=== PATIENT | female | born 1980 | race Caucasian/White ===

== ENCOUNTER 2016-12-21 18:57 | Emergency (ER) | payer MEDICAID ==
[2016-12-21 20:45] LABS: BASOPHIL % 0.1 % (0-2); PLATELET COUNT 361 x10^3mcL (130-400)
[2016-12-21 20:47] LABS: RED CELL DISTRIBUTION WIDTH 15.5 % (11.5-14.5)
[2016-12-21 21:29] LABS: CALCIUM 9.3 mg/dL (8.5-10.1); CARBON DIOXIDE 21.8 mmol/L (21-32); CHLORIDE SERUM 101 mmol/L (98-107); CREATININE SERUM 1.1 mg/dL (0.6-1.0); GFR1 > 60 mL/min; GLUCOSE SERUM 90 mg/dL (74-106); POTASSIUM SERUM 4.5 mmol/L (3.5-5.1); SODIUM SERUM 134 mmol/L (136-145)
[2016-12-21 21:32] LABS: ALKALINE PHOSPHATASE 99 U/L (46-116); ALT/SGPT 21 U/L (14-59); AST/SGOT 24 U/L (15-37); BILIRUBIN TOTAL 0.3 mg/dL (0.20-1.00); LIPASE 106 IU/L (73-393)
[2016-12-21 21:33] LABS: TOTAL PROTEIN, SERUM 8.3 g/dL (6.4-8.2)
[2016-12-22 01:30] VITALS: BP 127/78
[2016-12-23] MEDS ORDERED: ZESTRIL20 MG PO (22:23)
[2016-12-23] MEDS ORDERED: CATAPRES0.1 MG PO (22:23)
[2016-12-23] MEDS ORDERED: PREDNISONE2.5 MG PO (22:23)
[2016-12-23] MEDS ORDERED: NEURONTIN600 MG PO (22:23)
[2016-12-23] MEDS ORDERED: TRAMADOL HCL50 MG PO (22:24)
[2016-12-23] MEDS ORDERED: PLAQUENIL200 MG PO (23:37)
== END 2016-12-22 01:30 | disposition home or self-care (01) ==
LOC: ED 18:57
PROVIDERS: Emergency Medicine
DX: R10.31 Right lower quadrant pain (principal); R10.32 Left lower quadrant pain; R11.0 Nausea; R63.0 Anorexia; I10 Essential (primary) hypertension
CPT/HCPCS: J1885; J2270; J2405; J2543; J3490; J7030; Q9967

== ENCOUNTER 2016-12-23 18:49 | Inpatient (IN) | payer MEDICAID ==
[~2016-12-23] VITALS: Ht 167.6 cm; Wt 74.4 kg
[2016-12-23 20:52] LABS: microscopic required? NO
[2016-12-23 21:18] LABS: urine erythrocyte NEGATIVE (NEGATIVE)
[2016-12-23 21:21] LABS: BASOPHIL % 0.4 % (0-2); PLATELET COUNT 295 x10^3mcL (130-400)
[2016-12-23 21:25] LABS: RED CELL DISTRIBUTION WIDTH 15.3 % (11.5-14.5)
[2016-12-23 21:56] LABS: CARBON DIOXIDE 22.1 mmol/L (21-32); CREATININE SERUM 1.2 mg/dL (0.6-1.0); POTASSIUM SERUM 4.2 mmol/L (3.5-5.1)
[2016-12-23 22:01] LABS: ALBUMIN 3.5 g/dL (3.4-5.0); BILIRUBIN TOTAL 0.3 mg/dL (0.20-1.00); TOTAL PROTEIN, SERUM 6.8 g/dL (6.4-8.2)
[2016-12-23] MEDS ORDERED: ZESTRIL20 MG PO (22:23)
[2016-12-23] MEDS ORDERED: NEURONTIN600 MG PO (22:23)
[2016-12-23] MEDS ORDERED: PREDNISONE2.5 MG PO (22:23)
[2016-12-23] MEDS ORDERED: CATAPRES0.1 MG PO (22:23)
[2016-12-23] MEDS ORDERED: TRAMADOL HCL50 MG PO (22:24)
[2016-12-23 23:12] VITALS: BP 123/75
[2016-12-23] MEDS ORDERED: PLAQUENIL200 MG PO (23:37)
[2016-12-24 00:02] LABS: MAGNESIUM 2.1 mg/dL (1.8-2.4); PHOSPHOROUS 2.7 mg/dL (2.5-4.9)
[2016-12-24 00:06] LABS: FREE T4 1.16 ng/dL (0.76-1.46); FREE THYROXINE INDEX 2.7 ug/dL (1.4-4.5); T4(THYROXINE) 8.5 ug/dL (4.7-13.3)
[2016-12-24 00:10] LABS: CHOLESTEROL/HDL RATIO 1.6
[2016-12-24 00:29] LABS: T3 TOTAL 1.05 ng/mL
[2016-12-24] MEDS ORDERED: KLO0.5 PO (01:23)
[2016-12-24 10:15] VITALS: BP 105/71
[2016-12-24 12:37] LABS: AMPHETAMINE QUAL UR NONE DETECTED (NEG <=1000)
[2016-12-24 16:51] VITALS: BP 113/74
[2016-12-24 21:01] VITALS: BP 140/90
[2016-12-24] MEDS ORDERED: REMERON30 MG PO (21:46)
[2016-12-24 22:40] VITALS: BP 136/64
[2016-12-25 05:41] VITALS: BP 132/92
[2016-12-25 08:36] VITALS: BP 142/94
[2016-12-25 09:01] VITALS: BP 138/99
[2016-12-25] MEDS ORDERED: PERCOCET1 TAB PO (11:54)
[2016-12-25 13:09] VITALS: BP 138/99
[2016-12-25 13:12] LABS: CALCIUM 7.4 mg/dL (8.5-10.1); CARBON DIOXIDE 22.2 mmol/L (21-32); CHLORIDE SERUM 111 mmol/L (98-107); CREATININE SERUM 1.1 mg/dL (0.6-1.0); GFR1 > 60 mL/min; GLUCOSE SERUM 107 mg/dL (74-106); POTASSIUM SERUM 4.3 mmol/L (3.5-5.1); SODIUM SERUM 142 mmol/L (136-145)
[2016-12-25] MEDS ORDERED: NAPROXEN375 MG PO (14:51)
[2016-12-25 18:07] VITALS: BP 148/92
== END 2016-12-25 18:24 | disposition home or self-care (01) | DRG 532 ==
LOC: ED 18:49 → DU 22:34 → MU 22:34 → DU 23:13 → MU 12-24 10:29
PROVIDERS: Emergency Medicine; Family Medicine; ADMIT Family Medicine
DX: N83.201 Unspecified ovarian cyst, right side (principal); N17.0 Acute kidney failure with tubular necrosis; D69.3 Immune thrombocytopenic purpura; M32.9 Systemic lupus erythematosus, unspecified; M06.9 Rheumatoid arthritis, unspecified; I10 Essential (primary) hypertension; D64.9 Anemia, unspecified; K76.9 Liver disease, unspecified; F17.210 Nicotine dependence, cigarettes, uncomplicated; Z68.26 Body mass index [BMI] 26.0-26.9, adult
CPT/HCPCS: 83880; 84439; J1885; J2270; J2405; J7030; J7512; Q0092; Q9967

== ENCOUNTER 2016-12-28 20:39 | Emergency (ER) | payer MEDICAID ==
[~2016-12-28 20:39] MED LIST: CATAPRES0.1 MG PO; KLO0.5 PO; NAPROXEN375 MG PO; NEURONTIN600 MG PO; PERCOCET1 TAB PO; PLAQUENIL200 MG PO; PREDNISONE2.5 MG PO; REMERON30 MG PO; TRAMADOL HCL50 MG PO; ZESTRIL20 MG PO
[2016-12-28 22:44] LABS: BASOPHIL % 0.3 % (0-2); PLATELET COUNT 304 x10^3mcL (130-400)
[2016-12-28 22:45] LABS: UA SPECIFIC GRAVITY <=1.005 (1.005-1.035); microscopic required? YES; urine erythrocyte TRACE (NEGATIVE)
[2016-12-28 22:55] LABS: RED CELL DISTRIBUTION WIDTH 15.5 % (11.5-14.5)
[2016-12-28 23:03] LABS: CALCIUM 8.5 mg/dL (8.5-10.1); CARBON DIOXIDE 21.9 mmol/L (21-32); CHLORIDE SERUM 108 mmol/L (98-107); CREATININE SERUM 1.1 mg/dL (0.6-1.0); GFR1 > 60 mL/min; GLUCOSE SERUM 110 mg/dL (74-106); POTASSIUM SERUM 3.9 mmol/L (3.5-5.1); SODIUM SERUM 141 mmol/L (136-145)
[2016-12-28 23:07] LABS: ALBUMIN 3.4 g/dL (3.4-5.0); ALKALINE PHOSPHATASE 70 U/L (46-116); ALT/SGPT 24 U/L (14-59); AMYLASE 87 U/L (25-115); AST/SGOT 19 U/L (15-37); BILIRUBIN TOTAL 0.17 mg/dL (0.20-1.00); LIPASE 106 IU/L (73-393)
[2016-12-29] VITALS: BP 127/82
== END 2016-12-29 | disposition home or self-care (01) ==
LOC: ED 20:39
PROVIDERS: Emergency Medicine
DX: R10.9 Unspecified abdominal pain (principal); M32.9 Systemic lupus erythematosus, unspecified; M06.9 Rheumatoid arthritis, unspecified; D69.3 Immune thrombocytopenic purpura; F41.9 Anxiety disorder, unspecified; I10 Essential (primary) hypertension; Z88.1 Allergy status to other antibiotic agents; Z88.2 Allergy status to sulfonamides
CPT/HCPCS: 83880; 87046; 87046-59

== ENCOUNTER 2017-01-05 20:20 | Emergency (ER) | payer MEDICAID ==
[2017-01-05 21:21] LABS: BASOPHIL % 0.4 % (0-2); PLATELET COUNT 289 x10^3mcL (130-400)
[2017-01-05 21:28] LABS: RED CELL DISTRIBUTION WIDTH 15.5 % (11.5-14.5)
[2017-01-05 21:35] LABS: CALCIUM 8.5 mg/dL (8.5-10.1); CARBON DIOXIDE 23.7 mmol/L (21-32); CHLORIDE SERUM 104 mmol/L (98-107); CREATININE SERUM 1.1 mg/dL (0.6-1.0); GFR1 > 60 mL/min; GLUCOSE SERUM 82 mg/dL (74-106); POTASSIUM SERUM 3.9 mmol/L (3.5-5.1); SODIUM SERUM 137 mmol/L (136-145)
[2017-01-05 21:39] LABS: ALBUMIN 3.5 g/dL (3.4-5.0); ALKALINE PHOSPHATASE 81 U/L (46-116); ALT/SGPT 26 U/L (14-59); AMYLASE 79 U/L (25-115); AST/SGOT 26 U/L (15-37); BILIRUBIN TOTAL 0.2 mg/dL (0.20-1.00); LIPASE 103 IU/L (73-393); TOTAL PROTEIN, SERUM 6.9 g/dL (6.4-8.2)
[2017-01-05 22:26] VITALS: BP 86/51
== END 2017-01-05 22:26 | disposition home or self-care (01) ==
LOC: ED 20:20
PROVIDERS: Emergency Medicine
DX: K52.9 Noninfective gastroenteritis and colitis, unspecified (principal); I10 Essential (primary) hypertension; F32.9 Major depressive disorder, single episode, unspecified; M06.9 Rheumatoid arthritis, unspecified; L93.0 Discoid lupus erythematosus; Z88.2 Allergy status to sulfonamides
CPT/HCPCS: 83880; J0780; J1200; J3010; J7030

== ENCOUNTER 2017-01-06 21:29 | Emergency (ER) | payer MEDICAID ==
[2017-01-06 23:35] VITALS: BP 146/94
== END 2017-01-06 23:35 | disposition home or self-care (01) ==
LOC: ED 21:29
DX: K29.70 Gastritis, unspecified, without bleeding (principal); M06.9 Rheumatoid arthritis, unspecified; F41.9 Anxiety disorder, unspecified; F32.1 Major depressive disorder, single episode, moderate; I10 Essential (primary) hypertension; L93.0 Discoid lupus erythematosus; Z79.899 Other long term (current) drug therapy; Z79.1 Long term (current) use of non-steroidal anti-inflammatories (NSAID); Z79.2 Long term (current) use of antibiotics; Z88.2 Allergy status to sulfonamides; Z88.1 Allergy status to other antibiotic agents
CPT/HCPCS: C9113; J2405

== ENCOUNTER 2017-01-07 00:32 | Emergency (ER) | payer MEDICAID ==
[2017-01-07 01:02] LABS: BASOPHIL % 1.4 % (0-2); PLATELET COUNT 263 x10^3mcL (130-400)
[2017-01-07 01:05] LABS: RED CELL DISTRIBUTION WIDTH 15.1 % (11.5-14.5)
[2017-01-07 01:12] LABS: CALCIUM 8.1 mg/dL (8.5-10.1); CARBON DIOXIDE 20.8 mmol/L (21-32); CHLORIDE SERUM 108 mmol/L (98-107); GFR1 > 60 mL/min; GLUCOSE SERUM 94 mg/dL (74-106); POTASSIUM SERUM 4.1 mmol/L (3.5-5.1); SODIUM SERUM 142 mmol/L (136-145)
[2017-01-07 01:16] LABS: ALKALINE PHOSPHATASE 72 U/L (46-116); ALT/SGPT 28 U/L (14-59); AST/SGOT 32 U/L (15-37); BILIRUBIN TOTAL 0.22 mg/dL (0.20-1.00); TOTAL PROTEIN, SERUM 6.4 g/dL (6.4-8.2)
[2017-01-07 01:16] LABS: AMPHETAMINE QUAL UR NONE DETECTED (NEG <=1000)
[2017-01-07 01:22] LABS: ALBUMIN 3.2 g/dL (3.4-5.0)
[2017-01-07 16:02] VITALS: BP 129/67
== END 2017-01-07 16:02 ==
LOC: ED 00:32
PROVIDERS: Emergency Medicine
DX: R45.851 Suicidal ideations (principal); F32.9 Major depressive disorder, single episode, unspecified; G89.29 Other chronic pain; R10.9 Unspecified abdominal pain; M06.9 Rheumatoid arthritis, unspecified; I10 Essential (primary) hypertension; K58.9 Irritable bowel syndrome, unspecified; M32.9 Systemic lupus erythematosus, unspecified; Z88.2 Allergy status to sulfonamides; Z88.8 Allergy status to other drugs, medicaments and biological substances
CPT/HCPCS: 36415; G0480; J1885; J7506

== ENCOUNTER 2017-01-20 16:54 | Emergency (ER) | payer OTHER ==
[2017-01-20 17:20] VITALS: BP 141/81
[2017-01-20 19:32] LABS: microscopic required? NO
[2017-01-20 19:41] LABS: UA SPECIFIC GRAVITY 1.025 (1.005-1.035); urine erythrocyte NEGATIVE (NEGATIVE)
[2017-01-20 19:51] LABS: BASOPHIL % 0.2 % (0-2); PLATELET COUNT 261 x10^3mcL (130-400)
[2017-01-20 19:53] LABS: RED CELL DISTRIBUTION WIDTH 15.9 % (11.5-14.5)
[2017-01-20 20:13] LABS: CALCIUM 8.2 mg/dL (8.5-10.1); CARBON DIOXIDE 23.5 mmol/L (21-32); CHLORIDE SERUM 110 mmol/L (98-107); GFR1 > 60 mL/min; GLUCOSE SERUM 106 mg/dL (74-106); POTASSIUM SERUM 4.5 mmol/L (3.5-5.1); SODIUM SERUM 141 mmol/L (136-145)
[2017-01-20 20:18] LABS: ALBUMIN 3.5 g/dL (3.4-5.0); ALKALINE PHOSPHATASE 65 U/L (46-116); ALT/SGPT 29 U/L (14-59); AST/SGOT 21 U/L (15-37); BILIRUBIN TOTAL 0.14 mg/dL (0.20-1.00); TOTAL PROTEIN, SERUM 6.6 g/dL (6.4-8.2)
== END 2017-01-20 21:53 | disposition home or self-care (01) ==
LOC: ED 16:54
PROVIDERS: Emergency Medicine
DX: N39.0 Urinary tract infection, site not specified (principal); N83.202 Unspecified ovarian cyst, left side; N83.201 Unspecified ovarian cyst, right side; K57.90 Diverticulosis of intestine, part unspecified, without perforation or abscess without bleeding; M32.9 Systemic lupus erythematosus, unspecified; M06.9 Rheumatoid arthritis, unspecified; F41.9 Anxiety disorder, unspecified; D69.3 Immune thrombocytopenic purpura; I10 Essential (primary) hypertension; F99 Mental disorder, not otherwise specified; Z79.899 Other long term (current) drug therapy
CPT/HCPCS: 36415; Q9967

== ENCOUNTER 2017-01-27 16:27 | Emergency (ER) | payer OTHER ==
[2017-01-27 20:03] LABS: CALCIUM 8.4 mg/dL (8.5-10.1); CHLORIDE SERUM 105 mmol/L (98-107); GFR1 > 60 mL/min; GLUCOSE SERUM 84 mg/dL (74-106); POTASSIUM SERUM 4.2 mmol/L (3.5-5.1); SODIUM SERUM 139 mmol/L (136-145)
[2017-01-27 23:09] VITALS: BP 142/96
== END 2017-01-27 23:09 | disposition home or self-care (01) ==
LOC: ED 16:27
PROVIDERS: Emergency Medicine Emergency Medical Services
DX: M79.605 Pain in left leg (principal); R07.9 Chest pain, unspecified; I10 Essential (primary) hypertension; Z88.2 Allergy status to sulfonamides; Z88.1 Allergy status to other antibiotic agents; Z79.899 Other long term (current) drug therapy
CPT/HCPCS: 36415; 83880; 85378; Q0092

== ENCOUNTER 2017-01-31 16:47 | Inpatient (IN) | payer OTHER ==
[~2017-01-31] VITALS: Ht 165.1 cm; Wt 79.5 kg
[2017-01-31 19:11] LABS: microscopic required? YES; urine erythrocyte 3+ (NEGATIVE)
[2017-01-31 19:17] LABS: BASOPHIL % 0.3 % (0-2); PLATELET COUNT 350 x10^3mcL (130-400)
[2017-01-31 19:22] LABS: RED CELL DISTRIBUTION WIDTH 15.5 % (11.5-14.5)
[2017-01-31 19:24] LABS: CALCIUM 8.6 mg/dL (8.5-10.1); CARBON DIOXIDE 18.1 mmol/L (21-32); CHLORIDE SERUM 107 mmol/L (98-107); CREATININE SERUM 0.9 mg/dL (0.6-1.0); GFR1 > 60 mL/min; GLUCOSE SERUM 82 mg/dL (74-106); POTASSIUM SERUM 4.1 mmol/L (3.5-5.1); SODIUM SERUM 141 mmol/L (136-145)
[2017-01-31 19:28] LABS: ALBUMIN 3.9 g/dL (3.4-5.0); ALKALINE PHOSPHATASE 78 U/L (46-116); ALT/SGPT 22 U/L (14-59); AST/SGOT 20 U/L (15-37); BILIRUBIN TOTAL 0.28 mg/dL (0.20-1.00); LIPASE 114 IU/L (73-393); TOTAL PROTEIN, SERUM 7.5 g/dL (6.4-8.2)
[2017-01-31 21:41] LABS: MAGNESIUM 1.9 mg/dL (1.8-2.4); PHOSPHOROUS 2.3 mg/dL (2.5-4.9)
[2017-01-31 21:42] LABS: CHOLESTEROL/HDL RATIO 1.7
[2017-01-31 21:48] LABS: T3 TOTAL 1.28 ng/mL
[2017-01-31 22:03] LABS: FREE T4 1.19 ng/dL (0.76-1.46); T4(THYROXINE) 10.8 ug/dL (4.7-13.3)
[2017-01-31 22:17] VITALS: BP 155/106
[2017-01-31 22:19] VITALS: BP 155/106
[2017-01-31 22:23] VITALS: Ht 165.1 cm; Wt 79.5 kg
[2017-02-01] VITALS (7 sets, daily range): BP systolic 98–150; BP diastolic 61–99
[2017-02-01 06:42] LABS: BASOPHIL % 0.2 % (0-2); PLATELET COUNT 265 x10^3mcL (130-400)
[2017-02-01 06:46] LABS: ALKALINE PHOSPHATASE 66 U/L (46-116); ALT/SGPT 17 U/L (14-59); AST/SGOT 20 U/L (15-37); BILIRUBIN TOTAL 0.3 mg/dL (0.20-1.00); CALCIUM 7.5 mg/dL (8.5-10.1); CARBON DIOXIDE 19.4 mmol/L (21-32); CHLORIDE SERUM 104 mmol/L (98-107); CREATININE SERUM 0.9 mg/dL (0.6-1.0); GFR1 > 60 mL/min; GLUCOSE SERUM 95 mg/dL (74-106); POTASSIUM SERUM 4.4 mmol/L (3.5-5.1); SODIUM SERUM 140 mmol/L (136-145)
[2017-02-01 06:48] LABS: RED CELL DISTRIBUTION WIDTH 15.8 % (11.5-14.5)
[2017-02-01 06:52] LABS: TOTAL PROTEIN, SERUM 6.1 g/dL (6.4-8.2)
[2017-02-01 15:51] LABS: AMPHETAMINE QUAL UR NONE DETECTED (NEG <=1000)
[2017-02-02 05:37] VITALS: BP 140/92
[2017-02-02 06:57] LABS: CALCIUM 7.7 mg/dL (8.5-10.1); CHLORIDE SERUM 112 mmol/L (98-107); CREATININE SERUM 0.9 mg/dL (0.6-1.0); GFR1 > 60 mL/min; GLUCOSE SERUM 93 mg/dL (74-106); POTASSIUM SERUM 4.3 mmol/L (3.5-5.1); SODIUM SERUM 143 mmol/L (136-145)
[2017-02-02 07:09] LABS: BASOPHIL % 0.6 % (0-2); PLATELET COUNT 247 x10^3mcL (130-400)
[2017-02-02 07:10] LABS: RED CELL DISTRIBUTION WIDTH 15.6 % (11.5-14.5)
[2017-02-02 09:12] VITALS: BP 141/91
[2017-02-02 13:25] VITALS: BP 141/96
[2017-02-02 17:17] VITALS: BP 136/89
[2017-02-02 20:12] VITALS: BP 135/98
[2017-02-02 21:19] VITALS: BP 103/58
[2017-02-03 05:52] VITALS: BP 152/87
[2017-02-03 06:34] LABS: CALCIUM 7.9 mg/dL (8.5-10.1); CARBON DIOXIDE 23.5 mmol/L (21-32); CHLORIDE SERUM 112 mmol/L (98-107); CREATININE SERUM 0.8 mg/dL (0.6-1.0); GFR1 > 60 mL/min; GLUCOSE SERUM 104 mg/dL (74-106); SODIUM SERUM 142 mmol/L (136-145)
[2017-02-03 07:04] LABS: BASOPHIL % 0.5 % (0-2); PLATELET COUNT 247 x10^3mcL (130-400)
[2017-02-03 07:05] LABS: RED CELL DISTRIBUTION WIDTH 15.7 % (11.5-14.5)
[2017-02-03 09:40] VITALS: BP 131/87
[2017-02-03 13:30] VITALS: BP 134/91
[2017-02-03 17:30] VITALS: BP 154/99
[2017-02-03 20:53] VITALS: BP 143/98
[2017-02-04] VITALS: BP 131/89
[2017-02-04 05:46] VITALS: BP 160/96
[2017-02-04 06:37] LABS: CALCIUM 8.1 mg/dL (8.5-10.1); CARBON DIOXIDE 25.5 mmol/L (21-32); CHLORIDE SERUM 110 mmol/L (98-107); CREATININE SERUM 0.9 mg/dL (0.6-1.0); GFR1 > 60 mL/min; GLUCOSE SERUM 88 mg/dL (74-106); POTASSIUM SERUM 4.3 mmol/L (3.5-5.1); SODIUM SERUM 144 mmol/L (136-145)
[2017-02-04 07:24] VITALS: BP 146/95
[2017-02-04 08:20] LABS: BASOPHIL % 0.5 % (0-2); PLATELET COUNT 251 x10^3mcL (130-400)
[2017-02-04 08:21] LABS: RED CELL DISTRIBUTION WIDTH 15.5 % (11.5-14.5)
[2017-02-04 10:11] VITALS: BP 154/98
[2017-02-04 14:29] VITALS: BP 152/92
[2017-02-04] MEDS ORDERED: LEVAQUIN750 MG PO (15:06)
[2017-02-04] MEDS ORDERED: PLAQUENIL200 MG PO (15:34)
[2017-02-04] MEDS ORDERED: CATAPRES0.1 MG PO (15:36)
[2017-02-04] MEDS ORDERED: ZESTRIL20 MG PO (15:37)
[2017-02-04] MEDS ORDERED: NAPROXEN375 MG PO (15:38)
[2017-02-04] MEDS ORDERED: NEURONTIN600 MG PO (15:44)
[2017-02-04] MEDS ORDERED: REMERON30 MG PO (15:45)
[2017-02-04] MEDS ORDERED: PREDNISONE2.5 MG PO (15:46)
[2017-02-04] MEDS ORDERED: TRAMADOL HCL50 MG PO (15:48)
[2017-02-04] MEDS ORDERED: KLO0.5 PO (15:48)
[2017-02-04 18:00] VITALS: BP 140/80
== END 2017-02-04 20:00 | disposition home or self-care (01) | DRG 720 ==
LOC: ED 16:47 → DU 20:43
PROVIDERS: Emergency Medicine; Family Medicine; ADMIT Family Medicine
DX: A41.9 Sepsis, unspecified organism (principal); D69.3 Immune thrombocytopenic purpura; M32.9 Systemic lupus erythematosus, unspecified; E83.39 Other disorders of phosphorus metabolism; M06.9 Rheumatoid arthritis, unspecified; I10 Essential (primary) hypertension; F17.210 Nicotine dependence, cigarettes, uncomplicated; F41.9 Anxiety disorder, unspecified; F32.9 Major depressive disorder, single episode, unspecified; N10 Acute pyelonephritis; R31.9 Hematuria, unspecified; Z88.2 Allergy status to sulfonamides; Z68.31 Body mass index [BMI] 31.0-31.9, adult; Z79.52 Long term (current) use of systemic steroids; Z88.8 Allergy status to other drugs, medicaments and biological substances
CPT/HCPCS: 83880; 84439; J0696; J1885; J2270; J2405; J3010; J7030; J7506; J7512; Q0092

== ENCOUNTER 2017-02-16 21:31 | Emergency (ER) | payer OTHER ==
[~2017-02-16 21:31] MED LIST changes: +LEVAQUIN750 MG PO
[2017-02-17 01:11] LABS: BASOPHIL % 0.1 % (0-2); PLATELET COUNT 317 x10^3mcL (130-400)
[2017-02-17 01:14] LABS: RED CELL DISTRIBUTION WIDTH 15.3 % (11.5-14.5)
[2017-02-17 01:26] LABS: CALCIUM 7.9 mg/dL (8.5-10.1); CARBON DIOXIDE 22.1 mmol/L (21-32); CHLORIDE SERUM 108 mmol/L (98-107); GFR1 > 60 mL/min; GLUCOSE SERUM 133 mg/dL (74-106); SODIUM SERUM 143 mmol/L (136-145)
[2017-02-17 01:30] LABS: ALKALINE PHOSPHATASE 75 U/L (46-116); ALT/SGPT 22 U/L (14-59); AST/SGOT 12 U/L (15-37); BILIRUBIN TOTAL 0.16 mg/dL (0.20-1.00); LIPASE 112 IU/L (73-393); TOTAL PROTEIN, SERUM 6.9 g/dL (6.4-8.2)
[2017-02-17 01:31] LABS: ALBUMIN 3.3 g/dL (3.4-5.0)
[2017-02-17 01:36] LABS: UA SPECIFIC GRAVITY 1.015 (1.005-1.035); microscopic required? YES; urine erythrocyte NEGATIVE (NEGATIVE)
[2017-02-17 03:26] VITALS: BP 119/83
== END 2017-02-17 04:00 | disposition left against medical advice (07) ==
LOC: ED 21:31
PROVIDERS: Emergency Medicine
DX: R10.84 Generalized abdominal pain (principal); M54.6 Pain in thoracic spine; G43.909 Migraine, unspecified, not intractable, without status migrainosus; I10 Essential (primary) hypertension; F99 Mental disorder, not otherwise specified; F41.9 Anxiety disorder, unspecified; F32.1 Major depressive disorder, single episode, moderate; M32.9 Systemic lupus erythematosus, unspecified; M06.9 Rheumatoid arthritis, unspecified; D69.3 Immune thrombocytopenic purpura; Z88.2 Allergy status to sulfonamides; Z79.899 Other long term (current) drug therapy; Z88.1 Allergy status to other antibiotic agents
CPT/HCPCS: J1200; J1885; J2765; J3010; J7030

== ENCOUNTER 2017-02-28 12:33 | Emergency (ER) | payer OTHER ==
[~2017-02-28] VITALS: Ht 165.1 cm; Wt 86.3 kg
[2017-02-28 13:35] LABS: BASOPHIL % 0.1 % (0-2); PLATELET COUNT 350 x10^3mcL (130-400)
[2017-02-28 13:37] LABS: microscopic required? YES; urine erythrocyte 2+ (NEGATIVE)
[2017-02-28 13:38] LABS: RED CELL DISTRIBUTION WIDTH 16.3 % (11.5-14.5)
[2017-02-28 13:51] LABS: CALCIUM 8.1 mg/dL (8.5-10.1); CARBON DIOXIDE 20.8 mmol/L (21-32); CHLORIDE SERUM 108 mmol/L (98-107); GFR1 > 60 mL/min; GLUCOSE SERUM 96 mg/dL (74-106); POTASSIUM SERUM 4.7 mmol/L (3.5-5.1); SODIUM SERUM 139 mmol/L (136-145)
[2017-02-28 13:55] LABS: ALBUMIN 3.4 g/dL (3.4-5.0); ALKALINE PHOSPHATASE 97 U/L (46-116); ALT/SGPT 24 U/L (14-59); AST/SGOT 22 U/L (15-37); BILIRUBIN TOTAL 0.17 mg/dL (0.20-1.00); TOTAL PROTEIN, SERUM 7.4 g/dL (6.4-8.2)
[2017-02-28 16:34] VITALS: BP 121/72
== END 2017-02-28 16:34 | disposition home or self-care (01) ==
LOC: ED 12:33
PROVIDERS: Emergency Medicine
DX: L29.8 Other pruritus (principal); R11.2 Nausea with vomiting, unspecified; F17.210 Nicotine dependence, cigarettes, uncomplicated; I10 Essential (primary) hypertension; M06.9 Rheumatoid arthritis, unspecified; F32.9 Major depressive disorder, single episode, unspecified; Z88.5 Allergy status to narcotic agent; Z88.1 Allergy status to other antibiotic agents; Z71.6 Tobacco abuse counseling; T36.4X5A Adverse effect of tetracyclines, initial encounter; Y92.89 Other specified places as the place of occurrence of the external cause
CPT/HCPCS: 83880; 99406; J0696; J1200; J1885; J2930; J3010; Q0092

== ENCOUNTER 2017-03-26 12:59 | Emergency (ER) | payer OTHER ==
[~2017-03-26] VITALS: Ht 165.1 cm; Wt 82.1 kg
[2017-03-26 15:39] LABS: BASOPHIL % 0.3 % (0-2); PLATELET COUNT 348 x10^3mcL (130-400)
[2017-03-26 15:48] LABS: CALCIUM 8.8 mg/dL (8.5-10.1); CHLORIDE SERUM 105 mmol/L (98-107); CREATININE SERUM 0.9 mg/dL (0.6-1.0); GFR1 > 60 mL/min; GLUCOSE SERUM 81 mg/dL (74-106); POTASSIUM SERUM 4.1 mmol/L (3.5-5.1); SODIUM SERUM 138 mmol/L (136-145)
[2017-03-26 15:53] LABS: ALBUMIN 3.5 g/dL (3.4-5.0); ALKALINE PHOSPHATASE 104 U/L (46-116); ALT/SGPT 18 U/L (14-59); AMYLASE 60 U/L (25-115); AST/SGOT 16 U/L (15-37); BILIRUBIN TOTAL 0.2 mg/dL (0.20-1.00); LIPASE 80 IU/L (73-393); RED CELL DISTRIBUTION WIDTH 15.4 % (11.5-14.5); TOTAL PROTEIN, SERUM 7.5 g/dL (6.4-8.2)
[2017-03-26 17:24] VITALS: BP 130/82
== END 2017-03-26 17:25 | disposition home or self-care (01) ==
LOC: ED 12:59
PROVIDERS: Specialist
DX: N10 Acute pyelonephritis (principal); I10 Essential (primary) hypertension; A18.4 Tuberculosis of skin and subcutaneous tissue; F32.9 Major depressive disorder, single episode, unspecified; Z79.899 Other long term (current) drug therapy; Z88.2 Allergy status to sulfonamides; Z88.8 Allergy status to other drugs, medicaments and biological substances
CPT/HCPCS: 83880; J0696; J1885; J3010; J7030

== ENCOUNTER 2017-03-28 16:22 | Emergency (ER) | payer OTHER ==
[~2017-03-28] VITALS: Ht 165.1 cm; Wt 82.1 kg
[2017-03-28 18:38] LABS: UA SPECIFIC GRAVITY >=1.030 (1.005-1.035); microscopic required? YES; urine erythrocyte 3+ (NEGATIVE)
[2017-03-28 19:15] LABS: BASOPHIL % 0.3 % (0-2); PLATELET COUNT 350 x10^3mcL (130-400)
[2017-03-28 19:19] LABS: RED CELL DISTRIBUTION WIDTH 15.4 % (11.5-14.5)
[2017-03-28 19:21] LABS: CARBON DIOXIDE 23.5 mmol/L (21-32); CHLORIDE SERUM 107 mmol/L (98-107); GFR1 > 60 mL/min; GLUCOSE SERUM 106 mg/dL (74-106); SODIUM SERUM 140 mmol/L (136-145)
[2017-03-28 19:25] LABS: ALBUMIN 3.6 g/dL (3.4-5.0); ALKALINE PHOSPHATASE 109 U/L (46-116); ALT/SGPT 22 U/L (14-59); AST/SGOT 20 U/L (15-37); BILIRUBIN TOTAL 0.1 mg/dL (0.20-1.00); TOTAL PROTEIN, SERUM 7.6 g/dL (6.4-8.2)
[2017-03-28 21:52] VITALS: BP 128/82
== END 2017-03-28 21:52 | disposition home or self-care (01) ==
LOC: ED 16:22
PROVIDERS: Emergency Medicine
DX: A59.03 Trichomonal cystitis and urethritis (principal); M54.5 Low back pain; I10 Essential (primary) hypertension; M06.9 Rheumatoid arthritis, unspecified; A18.4 Tuberculosis of skin and subcutaneous tissue; Z88.2 Allergy status to sulfonamides
CPT/HCPCS: 36415; J2270; Q0092; Q0162

== ENCOUNTER 2017-04-06 11:12 | Emergency (ER) | payer OTHER ==
[~2017-04-06] VITALS: Ht 165.1 cm; Wt 86.6 kg
[2017-04-06 12:49] LABS: BASOPHIL % 0.4 % (0-2); PLATELET COUNT 315 x10^3mcL (130-400)
[2017-04-06 12:53] LABS: RED CELL DISTRIBUTION WIDTH 15.1 % (11.5-14.5)
[2017-04-06 13:01] LABS: CALCIUM 8.8 mg/dL (8.5-10.1); CHLORIDE SERUM 108 mmol/L (98-107); GFR1 > 60 mL/min; GLUCOSE SERUM 118 mg/dL (74-106); SODIUM SERUM 141 mmol/L (136-145)
[2017-04-06 13:08] LABS: microscopic required? NO
[2017-04-06 13:10] LABS: ALBUMIN 3.4 g/dL (3.4-5.0); ALKALINE PHOSPHATASE 87 U/L (46-116); ALT/SGPT 25 U/L (14-59); AST/SGOT 21 U/L (15-37); BILIRUBIN TOTAL 0.19 mg/dL (0.20-1.00); TOTAL PROTEIN, SERUM 6.9 g/dL (6.4-8.2)
[2017-04-06 13:17] LABS: urine erythrocyte NEGATIVE (NEGATIVE)
[2017-04-06 14:34] VITALS: BP 114/53
== END 2017-04-06 14:34 | disposition home or self-care (01) ==
LOC: ED 11:12
PROVIDERS: Emergency Medicine
DX: R07.89 Other chest pain (principal); J20.9 Acute bronchitis, unspecified; I10 Essential (primary) hypertension; M06.9 Rheumatoid arthritis, unspecified; A18.4 Tuberculosis of skin and subcutaneous tissue; F17.200 Nicotine dependence, unspecified, uncomplicated; Z88.2 Allergy status to sulfonamides
CPT/HCPCS: 83880; J2270; J2405; J7030; J7620; Q9967

== ENCOUNTER 2017-05-18 18:06 | Emergency (ER) | payer OTHER ==
[~2017-05-18] VITALS: Ht 167.6 cm; Wt 82.6 kg
[2017-05-18 19:05] LABS: BASOPHIL % 0.4 % (0-2); PLATELET COUNT 312 x10^3mcL (130-400)
[2017-05-18 19:06] LABS: RED CELL DISTRIBUTION WIDTH 15.6 % (11.5-14.5)
[2017-05-18 19:10] LABS: CALCIUM 8.6 mg/dL (8.5-10.1); CARBON DIOXIDE 24.7 mmol/L (21-32); CHLORIDE SERUM 107 mmol/L (98-107); GFR1 > 60 mL/min; GLUCOSE SERUM 90 mg/dL (74-106); POTASSIUM SERUM 3.9 mmol/L (3.5-5.1); SODIUM SERUM 141 mmol/L (136-145)
[2017-05-18 19:14] LABS: ALKALINE PHOSPHATASE 84 U/L (46-116); ALT/SGPT 19 U/L (14-59); AMYLASE 58 U/L (25-115); AST/SGOT 14 U/L (15-37); BILIRUBIN TOTAL 0.3 mg/dL (0.20-1.00); LIPASE 92 IU/L (73-393); TOTAL PROTEIN, SERUM 6.9 g/dL (6.4-8.2)
[2017-05-18 21:04] VITALS: BP 133/90
== END 2017-05-18 21:04 | disposition home or self-care (01) ==
LOC: ED 18:06
PROVIDERS: Emergency Medicine
DX: N39.0 Urinary tract infection, site not specified (principal); M06.9 Rheumatoid arthritis, unspecified; I10 Essential (primary) hypertension; M32.9 Systemic lupus erythematosus, unspecified
CPT/HCPCS: 83880; J0696; J0780; J1200; J1885; J2765; J3010

== ENCOUNTER 2017-05-24 14:08 | Emergency (ER) | payer OTHER ==
[2017-05-24 15:54] LABS: BASOPHIL % 0.1 % (0-2); PLATELET COUNT 297 x10^3mcL (130-400)
[2017-05-24 15:56] LABS: RED CELL DISTRIBUTION WIDTH 15.7 % (11.5-14.5)
[2017-05-24 16:00] LABS: CALCIUM 8.6 mg/dL (8.5-10.1); CARBON DIOXIDE 24.3 mmol/L (21-32); CHLORIDE SERUM 108 mmol/L (98-107); GFR1 > 60 mL/min; GLUCOSE SERUM 102 mg/dL (74-106); POTASSIUM SERUM 4.1 mmol/L (3.5-5.1); SODIUM SERUM 142 mmol/L (136-145)
[2017-05-24 16:04] LABS: ALKALINE PHOSPHATASE 77 U/L (46-116); ALT/SGPT 17 U/L (14-59); AMYLASE 75 U/L (25-115); AST/SGOT 14 U/L (15-37); BILIRUBIN TOTAL 0.2 mg/dL (0.20-1.00); LIPASE 103 IU/L (73-393)
[2017-05-24 16:07] LABS: ALBUMIN 3.2 g/dL (3.4-5.0)
[2017-05-24 16:27] LABS: UA SPECIFIC GRAVITY >=1.030 (1.005-1.035); microscopic required? YES; urine erythrocyte NEGATIVE (NEGATIVE)
[2017-05-24 16:38] LABS: AMPHETAMINE QUAL UR NONE DETECTED (NEG <=1000)
[2017-05-24 18:00] VITALS: BP 125/84
== END 2017-05-24 18:00 | disposition home or self-care (01) ==
LOC: ED 14:08
PROVIDERS: Emergency Medicine
DX: G89.29 Other chronic pain (principal); N39.0 Urinary tract infection, site not specified; F32.9 Major depressive disorder, single episode, unspecified; F41.9 Anxiety disorder, unspecified; F14.10 Cocaine abuse, uncomplicated; F12.10 Cannabis abuse, uncomplicated; Z88.2 Allergy status to sulfonamides; Z88.8 Allergy status to other drugs, medicaments and biological substances
CPT/HCPCS: 83880; J1885; J2270; J2405

== ENCOUNTER 2017-11-08 17:20 | Inpatient (IN) | payer OTHER ==
[2017-11-08 20:25] LABS: BASOPHIL % 0.3 % (0-2); PLATELET COUNT 395 x10^3mcL (130-400); RED CELL DISTRIBUTION WIDTH 14.4 % (11.5-14.5)
[2017-11-08 20:30] LABS: CALCIUM 8.7 mg/dL (8.5-10.1); CARBON DIOXIDE 24.9 mmol/L (21-32); CHLORIDE SERUM 102 mmol/L (98-107); CREATININE SERUM 0.9 mg/dL (0.6-1.0); GFR1 > 60 mL/min; GLUCOSE SERUM 81 mg/dL (74-106); POTASSIUM SERUM 3.3 mmol/L (3.5-5.1); SODIUM SERUM 138 mmol/L (136-145)
[2017-11-08 20:34] LABS: ALKALINE PHOSPHATASE 78 U/L (46-116); ALT/SGPT 10 U/L (14-59); AST/SGOT 15 U/L (15-37); BILIRUBIN TOTAL 0.26 mg/dL (0.20-1.00); LIPASE 47 IU/L (73-393)
[2017-11-08 20:36] LABS: ALBUMIN 2.9 g/dL (3.4-5.0)
[2017-11-08 22:09] VITALS: BP 118/76
[2017-11-08 22:44] LABS: T3 TOTAL 1.27 ng/mL
[2017-11-08] MEDS ORDERED: KLO0.5 PO (23:51)
[2017-11-08] MEDS ORDERED: NEURONTIN600 MG PO (23:51)
[2017-11-09 00:05] LABS: FREE T4 1.28 ng/dL (0.76-1.46); FREE THYROXINE INDEX 2.8 ug/dL (1.4-4.5); T4(THYROXINE) 8.2 ug/dL (4.7-13.3)
[2017-11-09 00:15] LABS: MAGNESIUM 1.9 mg/dL (1.8-2.4)
[2017-11-09 05:45] VITALS: BP 124/85
[2017-11-09 06:02] LABS: BASOPHIL % 0.1 % (0-2); PLATELET COUNT 379 x10^3mcL (130-400)
[2017-11-09 06:09] LABS: microscopic required? NO
[2017-11-09 06:15] LABS: UA SPECIFIC GRAVITY <=1.005 (1.005-1.035); urine erythrocyte NEGATIVE (NEGATIVE)
[2017-11-09 06:21] LABS: CALCIUM 8.4 mg/dL (8.5-10.1); CARBON DIOXIDE 22.3 mmol/L (21-32); CHLORIDE SERUM 106 mmol/L (98-107); CREATININE SERUM 0.8 mg/dL (0.6-1.0); GFR1 > 60 mL/min; GLUCOSE SERUM 153 mg/dL (74-106); PHOSPHOROUS 2.4 mg/dL (2.5-4.9); POTASSIUM SERUM 4.3 mmol/L (3.5-5.1); SODIUM SERUM 138 mmol/L (136-145)
[2017-11-09 06:55] LABS: RED CELL DISTRIBUTION WIDTH 14.8 % (11.5-14.5)
[2017-11-09 09:56] VITALS: BP 135/85
[2017-11-09 13:00] VITALS: BP 124/81
[2017-11-09 17:08] VITALS: BP 165/105
[2017-11-09 17:15] LABS: AMPHETAMINE QUAL UR NONE DETECTED (NEG <=1000)
[2017-11-09 21:25] VITALS: BP 174/107
[2017-11-09 23:05] VITALS: BP 151/91
[2017-11-10 05:42] VITALS: BP 120/69
[2017-11-10] MEDS ORDERED: KLO0.5 PO (06:55)
[2017-11-10] MEDS ORDERED: GABAPENTIN400 M1 PO (06:57)
[2017-11-10] MEDS ORDERED: PRE10 PO (07:00)
[2017-11-10 07:26] LABS: BASOPHIL % 0.2 % (0-2); PLATELET COUNT 347 x10^3mcL (130-400); RED CELL DISTRIBUTION WIDTH 14.4 % (11.5-14.5)
[2017-11-10 07:39] LABS: CALCIUM 8.4 mg/dL (8.5-10.1); CARBON DIOXIDE 24.1 mmol/L (21-32); CHLORIDE SERUM 112 mmol/L (98-107); CREATININE SERUM 0.8 mg/dL (0.6-1.0); GFR1 > 60 mL/min; GLUCOSE SERUM 185 mg/dL (74-106); PHOSPHOROUS 1.8 mg/dL (2.5-4.9); POTASSIUM SERUM 3.8 mmol/L (3.5-5.1); SODIUM SERUM 144 mmol/L (136-145)
[2017-11-10 09:40] VITALS: BP 144/90
[2017-11-10 13:31] VITALS: BP 140/88
[2017-11-10 16:54] VITALS: BP 156/104
[2017-11-10 20:45] VITALS: BP 141/81
[2017-11-11 05:50] VITALS: BP 158/77
[2017-11-11 07:31] LABS: PLATELET COUNT 343 x10^3mcL (130-400)
[2017-11-11 07:51] LABS: CALCIUM 8.2 mg/dL (8.5-10.1); CARBON DIOXIDE 26.3 mmol/L (21-32); CHLORIDE SERUM 113 mmol/L (98-107); CREATININE SERUM 0.8 mg/dL (0.6-1.0); GFR1 > 60 mL/min; GLUCOSE SERUM 163 mg/dL (74-106); MAGNESIUM 1.9 mg/dL (1.8-2.4); PHOSPHOROUS 1.8 mg/dL (2.5-4.9); POTASSIUM SERUM 3.5 mmol/L (3.5-5.1); SODIUM SERUM 144 mmol/L (136-145)
[2017-11-11 07:58] LABS: BASOPHIL % 0 % (0-2); RED CELL DISTRIBUTION WIDTH 14.7 % (11.5-14.5)
[2017-11-11 09:49] VITALS: BP 161/90
[2017-11-11] MEDS ORDERED: TRAMADOL HCL50 MG PO (11:34)
[2017-11-11 13:56] VITALS: BP 161/90
[2017-11-11 14:55] VITALS: BP 154/85
[2017-11-12 08:07] VITALS: Wt 66.2 kg
== END 2017-11-11 16:35 | disposition home or self-care (01) | DRG 346 ==
LOC: ED 17:20 → EDBEDREQ 21:09 → DU 21:09
PROVIDERS: Emergency Medicine; Family Medicine
DX: M06.9 Rheumatoid arthritis, unspecified (principal); E44.0 Moderate protein-calorie malnutrition; E83.39 Other disorders of phosphorus metabolism; E87.6 Hypokalemia; I10 Essential (primary) hypertension; G47.00 Insomnia, unspecified; D64.9 Anemia, unspecified; F17.210 Nicotine dependence, cigarettes, uncomplicated; Z68.24 Body mass index [BMI] 24.0-24.9, adult
CPT/HCPCS: 83880; 84439; C9113; J1644; J1885; J2270; J2920; J2930; J7030; J7512; Q0092; Q0163

== ENCOUNTER 2018-02-11 13:23 | Inpatient (IN) | payer OTHER ==
[~2018-02-11] VITALS: Ht 167.6 cm; Wt 73.0 kg
[~2018-02-11 13:23] MED LIST changes: +GABAPENTIN400 M1 PO; +PRE10 PO
[2018-02-11 13:37] VITALS: Ht 167.6 cm; Wt 73.0 kg
[2018-02-11 14:40] LABS: BASOPHIL % 0.1 % (0-2); PLATELET COUNT 312 x10^3mcL (130-400)
[2018-02-11 14:54] LABS: CARBON DIOXIDE 22.8 mmol/L (21-32); CHLORIDE SERUM 111 mmol/L (98-107); CREATININE SERUM 0.9 mg/dL (0.6-1.0); GFR1 > 60 mL/min; GLUCOSE SERUM 87 mg/dL (74-106); POTASSIUM SERUM 3.9 mmol/L (3.5-5.1); SODIUM SERUM 142 mmol/L (136-145)
[2018-02-11 14:55] LABS: RED CELL DISTRIBUTION WIDTH 14.8 % (11.5-14.5)
[2018-02-11 14:58] LABS: ALBUMIN 3.4 g/dL (3.4-5.0); ALKALINE PHOSPHATASE 81 U/L (46-116); ALT/SGPT 16 U/L (14-59); AST/SGOT 17 U/L (15-37); BILIRUBIN TOTAL 0.3 mg/dL (0.20-1.00)
[2018-02-12 07:41] LABS: UA SPECIFIC GRAVITY >=1.030 (1.005-1.035); microscopic required? YES; urine erythrocyte 2+ (NEGATIVE)
[2018-02-12] MEDS ORDERED: SEROQUEL200 MG PO (08:59)
[2018-02-12] MEDS ORDERED: TRAZODONE50 M1 PO (09:00)
[2018-02-12] MEDS ORDERED: CYMBALTA30 M1 PO (09:01)
[2018-02-12] MEDS ORDERED: PRO60 PO (09:01)
[2018-02-12] MEDS ORDERED: CLEOCIN HCL300 MG PO (09:02)
[2018-02-12] MEDS ORDERED: SUCRALFATE1 GM PO (09:04)
[2018-02-12] MEDS ORDERED: NOR10 PO (09:05)
[2018-02-12] MEDS ORDERED: HYDROXYCHLOROQ200 MG PO (09:06)
[2018-02-12] MEDS ORDERED: DOK COLACE100 MG (09:07)
[2018-02-12] MEDS ORDERED: DOK COLACE100 MG PO (09:07)
[2018-02-12 12:16] VITALS: BP 103/70
[2018-02-12 12:46] VITALS: BP 106/68
[2018-02-12 17:13] VITALS: BP 123/83
[2018-02-12 20:56] VITALS: BP 100/74
[2018-02-13 05:31] VITALS: BP 109/69
[2018-02-13 14:30] LABS: AMPHETAMINE QUAL UR POSITIVE (See below)
[2018-02-13 20:43] VITALS: BP 112/72
[2018-02-14 05:20] VITALS: BP 114/70
[2018-02-14 09:37] VITALS: BP 120/70
[2018-02-14 12:34] VITALS: BP 111/64
[2018-02-14 16:59] VITALS: BP 118/71
[2018-02-14 21:30] VITALS: BP 112/73
[2018-02-15 05:37] VITALS: BP 108/60
[2018-02-15 17:07] VITALS: BP 116/65
[2018-02-15 22:00] VITALS: BP 120/70
[2018-02-16 05:41] VITALS: BP 118/77
[2018-02-16 10:00] VITALS: BP 128/78
[2018-02-16 14:34] VITALS: BP 122/74
[2018-02-16 17:57] VITALS: BP 134/78
[2018-02-16 21:05] VITALS: BP 127/85
[2018-02-17 05:14] VITALS: BP 119/70
[2018-02-17 09:52] VITALS: BP 123/75
[2018-02-17 11:26] LABS: PLATELET COUNT 215 x10^3mcL (130-400)
[2018-02-17 11:29] LABS: CALCIUM 8.1 mg/dL (8.5-10.1); CARBON DIOXIDE 26.2 mmol/L (21-32); CHLORIDE SERUM 105 mmol/L (98-107); GFR1 > 60 mL/min; GLUCOSE SERUM 147 mg/dL (74-106); POTASSIUM SERUM 3.7 mmol/L (3.5-5.1); SODIUM SERUM 141 mmol/L (136-145)
[2018-02-17 11:32] LABS: RED CELL DISTRIBUTION WIDTH 14.6 % (11.5-14.5)
[2018-02-17 11:54] VITALS: BP 126/80
[2018-02-17 12:15] LABS: BAND NEUTROPHIL 5 % (0-10); BASOPHIL 0 % (0-2); MONOCYTE 6 % (0-7); SEGMENTED NEUTROPHILS 79 % (37-75)
[2018-02-17 12:16] LABS: PLATELET MORPHOLOGY PLATELETS NORMAL
[2018-02-17 17:44] VITALS: BP 138/86
[2018-02-17 20:58] VITALS: BP 118/80
[2018-02-18 06:14] VITALS: BP 114/71
[2018-02-18 18:34] VITALS: BP 133/83
[2018-02-18 19:54] VITALS: BP 123/73
[2018-02-19 05:26] VITALS: BP 114/72
[2018-02-19 08:37] VITALS: BP 123/77
[2018-02-19 12:57] VITALS: BP 110/73
[2018-02-19 17:42] VITALS: BP 123/82
[2018-02-19 20:17] VITALS: BP 123/80
[2018-02-20 06:10] VITALS: BP 113/70
[2018-02-20 09:41] VITALS: BP 129/72
[2018-02-20 16:43] VITALS: BP 115/79
[2018-02-20 16:47] VITALS: BP 115/79
== END 2018-02-20 18:11 | DRG 753 ==
LOC: ED 13:23 → MU 02-12 08:55 → DU 02-12 08:55 → MU 02-18 11:50
PROVIDERS: Emergency Medicine; Internal Medicine
DX: F31.5 Bipolar disorder, current episode depressed, severe, with psychotic features (principal); M32.9 Systemic lupus erythematosus, unspecified; R45.851 Suicidal ideations; F14.10 Cocaine abuse, uncomplicated; F15.10 Other stimulant abuse, uncomplicated; M06.9 Rheumatoid arthritis, unspecified; I10 Essential (primary) hypertension; F41.9 Anxiety disorder, unspecified; Z68.24 Body mass index [BMI] 24.0-24.9, adult; F17.210 Nicotine dependence, cigarettes, uncomplicated; Z88.2 Allergy status to sulfonamides; Z88.8 Allergy status to other drugs, medicaments and biological substances; Z88.3 Allergy status to other anti-infective agents; Z79.899 Other long term (current) drug therapy
CPT/HCPCS: G0480; J2270; J7030; J7512; Q0092